=== PATIENT | male | born 1955 | race Caucasian/White ===

== ENCOUNTER 2017-05-13 09:29 | Inpatient (IN) | payer OTHER ==
[2017-05-13] MEDS ORDERED: ASPIRIN EC 325 MG TAB PO ONE (09:33)
[2017-05-13] MEDS ORDERED: DIAZEPAM 5 MG TAB PO ONE (09:33)
[2017-05-13] MEDS ORDERED: FAMOTIDINE 20 MG TAB PO ONE (09:33)
[2017-05-13] MEDS ORDERED: diphenhydrAMINE 25 MG CAP PO ONE (09:33)
[2017-05-13] MEDS ORDERED: NS 1,000 ML IV ONE (09:33)
--- NOTE | 2017-05-13 09:44 | CPEKG ---
Heart Rate: 71 RR Interval: 845 P-R Interval: 176 QRSD Interval: 82 QT Interval: 372 QTC Interval: 405 P [place]: 1 QRS [place]: 16 T Wave [place]: 47 EKG Severity - ABNORMAL ECG - EKG Impression: SINUS RHYTHM EKG Impression: PROBABLE INFERIOR INFARCT, OLD Electronically Signed By: Chava Manjarrez 16-May-2017 08:48:56
[2017-05-13 10:00] LABS: % IMMATURE GRANULYOCYTES 0.2 % (0.0-1.1); ABSOLUTE IMMATURE GRANULOCYTES 0.01 10^3/uL (0.00-0.10); ADD DIFF? NO; ADD MORPH? NO; ADD SCAN? NO; ATYPICAL LYMPHOCYTE FLAG 0 (0-99); FRAGMENT RBC FLAG 0 (0-99); HEMATOCRIT 43.7 % (40.0-51.0); HEMOGLOBIN 15.1 g/dL (13.7-17.5); LEFT SHIFT FLG 0 (0-99); LIPEMIA HEMOLYSIS FLAG 90 (0-99); MEAN CELL HEMOGLOBIN 29.7 pg (27.9-34.1); MEAN CELL HEMOGLOBIN CONCENTR. 34.6 g/dL (32.4-36.7); MEAN CELL VOLUME 85.9 fL (81.5-99.8); MEAN PLATELET VOLUME 9.8 fL (8.7-11.7); PLATELET CLUMPS FLAG 0 (0-99); PLATELET COUNT 284 10^3/uL (150-400); RED BLOOD CELL COUNT 5.09 10^6/uL (4.40-6.38); RED CELL DISTRIBUTION WIDTH 12.3 % (11.5-15.2)
[2017-05-13 10:08] LABS: ANION GAP 5 mEq/L (8-16); CALCIUM 10.1 mg/dL (8.5-10.4); CARBON DIOXIDE 29 mEq/l (22-31); CHLORIDE 101 mEq/L (97-110); CHOLESTEROL 161 mg/dL (140-220); CREATININE 0.9 mg/dL (0.7-1.3); GLOMERULAR FILTRATION RATE > 60; GLUCOSE 100 mg/dL (70-100); HIGH DENSITY LIPOPROTEIN 52 mg/dL (40-65); LDL/HDL RATIO 1.73 RATIO (1.00-3.64); LOW DENSITY LIPOPROTEIN 90 mg/dL (80-100); MAGNESIUM 1.8 mg/dL (1.6-2.3); NON-HIGH DENSITY LIPOPROTEIN 109 mg/dL (90-129); POTASSIUM 4.2 mEq/L (3.5-5.2); SODIUM 135 mEq/L (134-144); TRIGLYCERIDE 99 mg/dL (40-150); VERY LOW DENSITY LIPOPROTEINS 19 mg/dL (8-25)
[2017-05-13 10:10] LABS: INR 1.05 (0.83-1.16); PROTIME(PATIENT) 13.6 SEC (12.0-15.0)
[2017-05-13] MEDS ORDERED: oxyCODONE IR 5 MG TAB PO PRN ×2 (10:42→10:46)
--- NOTE | 2017-05-13 11:54 | PDPROPOC ---
Sedation Plan of Care Sedation Plan of Care: vital signs stable, mental status noted, patient educated of risks, benefits, alternatives, patient can tolerate sedation ASA Classification: ASA 3 Planned drugs: fentanyl, midazolam Mallampati Score: Class 3 Mallampati Reference Image: Patient passed 3-3-2 rule?: Yes
--- NOTE | 2017-05-13 11:54 | PDHPUP ---
History & Physical Update H&P update statement: This history and physical update is based on an assessment of the patient which was completed after admission or registration (within 24 hours), but prior to the surgery/procedure. H&P update: H&P reviewed & patient examined, no change in patient's condition since H&P completed
[2017-05-13] MEDS ORDERED: LIDOCAINE 1% 300 MG/30 ML SDV ONE (12:30)
[2017-05-13] MEDS ORDERED: fentaNYL 100 MCG/2 ML INJ ONE ×3 (12:30→13:26)
[2017-05-13] MEDS ORDERED: VERAPAMIL 5 MG/2 ML VIAL ONE (12:31)
[2017-05-13] MEDS ORDERED: HEPARIN 10,000 UNIT/10 ML MDV ONE (12:31)
[2017-05-13] MEDS ORDERED: MIDAZOLAM 2 MG/2 ML VIAL ONE ×2 (12:31→13:04)
[2017-05-13] MEDS ORDERED: IOPAMIDOL (ISOVUE-370) 150 ML BTL IV ONE (12:31)
--- NOTE | 2017-05-13 13:19 | PDDXCAT ---
Diagnostic Cath Note - . Date: 05/13/17 High Worker: Ashanti Indication: other (shortness of breath anginal equivalent (CCS Class III)with moderate risk stress test) - Procedure Access: left wrist Procedure: left heart catheterization - Materials Left Heart Cath size: 5F Left Heart Cath materials: standard multipack (JL4, JR4, pigtail) - Findings-Left Heart Catheterization LM: it is small near the ostium and approx 3.5mm in size. Bifurcates into an LAD and circumflex system. The circ vessel is small approx 2.5mm in size. At the level of the first obtuse marginal takeoff there is a complex atheroma distal to the first obtuse marginal the circ is totally occuluded but fills via left to left collateral. LAD: The LAD arises in its usual location and is a 3mm vessel. It has been previously sentsed proximally. The stent is widely patent without evidenc of resentsosis. Gives rise to 2 important diagonal branches. 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 The LAD thereafter is small , approx 1.5mm in size. There is ANDRÉS III flow. RCA: 4mm in size and is dominant giving rise to PDA and 3 posterolateral ventricular branches. It has a hinge point near the acute margin of the heart. In the DAWSON projection it appears to be eccentric at least a 60% if not 70% lesion. In the stented segment of the distal right coronary approx to the PDA at least a 50% in stent restenosis. EDP: 19mmHg. LVEF: EF is 60% with a mid-anterior wall hypokinesis. Wall motion: No significant MR. The visualized portion of the thoracic aorta appears to be aneurysmal. There are three sinuses of Valsalva. One of which appears to have a linear radiolucency, that is of unclear significance. In the mid-anterior wall there is mild hypokinesis. The overall EF is preserved. Complications: NONE. Estimated blood loss: <50ml Closure method: TR Band Assessment: Severe [place] vessel coronary disease with insegment restenosis of the distal portion of the RCA stent at the acute margin of the heart estimated to be 65 to 70% in the DAWSON projection. The distal RCA stent is also compromised and has at least 50-60% stenosis in its mid segment. The circumflex OM is occluded with left to left collateral. There is a dilated aorta likely aneurysmal. The architecture of one of the sinuses of valsalva is abnormal. Plan: The patient will need to have a CT angiogram with 3D reconstruction of the thoracic aorta and sinuses of Valsalva and possibly a NENA to better characterize the aortic valve architecture. If a surgery is not required to repair the thoracic aorta or the aortic valve, the patient should have intervention to repair the RCA stents and possibly the circumflex obtuse marginal.
[2017-05-13] MEDS ORDERED: HYDROCODONE/APAP 5/325 TAB PO PRN (14:30)
[2017-05-13] MEDS ORDERED: NITROGLYCERIN 0.4 MG BTL SL PRN (14:30)
[2017-05-13] MEDS ORDERED: ONDANSETRON 4 MG/2 ML VIAL IVP PRN (14:30)
[2017-05-13] MEDS ORDERED: ATROPINE SULFATE 1 MG/10 ML SYR IVP PRN (14:30)
[2017-05-13] MEDS ORDERED: IOPAMIDOL (ISOVUE 370) 100 ML BTL IV ONE (14:52)
[2017-05-13] MEDS ORDERED: ACET/CAFFEINE/BUTA FIORICET 1 EACH TAB PO PRN (16:14)
[2017-05-13] MEDS ORDERED: CLOPIDOGREL BISULFATE 75 MG TAB PO ONE (18:15)
[2017-05-13] MEDS: AMITRIPTYLINE HCL 10 MG TAB PO SCH (21:25)
[2017-05-13] MEDS: oxyCODONE IR 15 MG TAB PO PRN (21:25)
[2017-05-13] MEDS: FLUTICASONE NASAL 120 SPRAYS/16 GM MDI EACHNARE SCH (23:13)
[2017-05-14] MEDS ORDERED: FAMOTIDINE 20 MG TAB PO ONE (06:37)
[2017-05-14] MEDS ORDERED: diphenhydrAMINE 25 MG CAP PO ONE (06:37)
[2017-05-14] MEDS ORDERED: TEMAZEPAM 15 MG CAP PO PRN (06:37)
[2017-05-14] MEDS ORDERED: DIAZEPAM 5 MG TAB PO ONE (06:37)
[2017-05-14] MEDS ORDERED: CLOPIDOGREL BISULFATE 75 MG TAB ONE (06:41)
--- NOTE | 2017-05-14 06:42 | PDPROPOC ---
Sedation Plan of Care ASA Classification: ASA 2 Planned drugs: fentanyl, midazolam Mallampati Score: Class 2 Mallampati Reference Image: Patient passed 3-3-2 rule?: Yes
--- NOTE | 2017-05-14 06:42 | PDHPUP ---
History & Physical Update H&P update statement: This history and physical update is based on an assessment of the patient which was completed after admission or registration (within 24 hours), but prior to the surgery/procedure. H&P update: H&P reviewed & patient examined (No dissection on CTA, plan for RCA PCI this AM)
--- NOTE | 2017-05-14 06:46 | PDCARPN ---
Cardiology Progress Note Chief Complaint: Pt feels well overnight Assessment/Plan: Assessment: CAD Plan: PCI of RCA- I have explained to patient risks/possible complications of performing procedure including bleeding, infection, and possible and he would like to proceed. NPO. 05/14/17 06:44 Subjective: No current CP Reviewed/Discussed With: family (discussed with family/pt about risks/possible complications of procedure) Time Spent With Patient: 25 Objective: Vital Signs (8 Hrs) Temp Pulse Resp BP Pulse Ox 05/14/17 04:00 36.4 C 66 18 130/84 H 94 05/13/17 23:43 36.7 C 74 16 118/74 94 Intake/Output (24 Hrs) 05/13/17 05/14/17 05/15/17 05:59 05:59 05:59 Intake Total 600 Balance 600 Intake: Oral (ml) 600 Other: Weight 83.915 kg Number of Voids Toilet 2 Result Diagrams: 05/13/17 09:40 05/13/17 09:40 ICD10 Worksheet Patient Problems: Problems Problem Status Onset Angina of effort Acute - ICD10 Problem Qualifiers (1) Angina of effort
[2017-05-14] MEDS: CLOPIDOGREL BISULFATE 75 MG TAB PO SCH (06:59)
[2017-05-14] MEDS ORDERED: LIDOCAINE 1% 300 MG/30 ML SDV ONE (07:27)
[2017-05-14] MEDS ORDERED: IOPAMIDOL (ISOVUE-370) 150 ML BTL IV ONE (07:27)
[2017-05-14] MEDS ORDERED: fentaNYL 100 MCG/2 ML INJ ONE ×3 (07:30→09:46)
[2017-05-14] MEDS ORDERED: MIDAZOLAM 2 MG/2 ML VIAL ONE ×2 (07:30→07:34)
[2017-05-14] MEDS ORDERED: BIVALIRUDIN 250 MG/5 ML VIAL IV ONE (07:34)
--- NOTE | 2017-05-14 08:21 | PDCARPN ---
Cardiology Progress Note Assessment/Plan: Assessment: CAD Plan: PCI of RCA- I have explained to patient risks/possible complications of performing procedure including bleeding, infection, and possible and he would like to proceed. NPO. 05/14/17 06:44 Objective: Vital Signs (8 Hrs) Temp Pulse Resp BP Pulse Ox 05/14/17 04:00 36.4 C 66 18 130/84 H 94 Intake/Output (24 Hrs) 05/13/17 05/14/17 05/15/17 05:59 05:59 05:59 Intake Total 600 Balance 600 Intake: Oral (ml) 600 Other: Weight 83.915 kg Number of Voids Toilet 2 Result Diagrams: 05/13/17 09:40 05/13/17 09:40 - Physical Exam Constitutional: healthy appearing Eyes: PERRL Cardiovascular: no murmurs Peripheral Pulses: 2+: carotid (R), carotid (L), femoral (R), femoral (L), dorsalis-pedis (R), dorsalis-pedis (L) Respiratory: clear to auscultate bilat Gastrointestinal: normoactive bowel sounds Skin: warm Neurologic: AAOx3 Psychiatric: cooperative, interactive Lymph, Heme, Immunologic: no lymphadenopathy ICD10 Worksheet Patient Problems: Problems Problem Status Onset Angina of effort Acute - ICD10 Problem Qualifiers (1) Angina of effort
--- NOTE | 2017-05-14 08:41 | CPEKG ---
Heart Rate: 60 RR Interval: 1000 P-R Interval: 168 QRSD Interval: 88 QT Interval: 408 QTC Interval: 408 P [place]: 0 QRS [place]: 6 T Wave [place]: 40 EKG Severity - ABNORMAL ECG - EKG Impression: SINUS RHYTHM EKG Impression: PROBABLE INFERIOR INFARCT, OLD Electronically Signed By: Chava Manjarrez 16-May-2017 08:49:01
[2017-05-14] MEDS: oxyCODONE IR 15 MG TAB PO PRN ×4 (08:49→20:00)
[2017-05-14] MEDS ORDERED: fentaNYL 100 MCG/2 ML INJ IVP ONE (10:00)
[2017-05-14] MEDS: RAMIPRIL 2.5 MG CAP PO SCH (10:55)
[2017-05-14] MEDS: CHOLECALCIFEROL VIT D3 1,000 UNITS TAB PO SCH (10:56)
[2017-05-14] MEDS: CYANO/VITAMIN B12 1000 MCG TAB PO SCH (10:58)
[2017-05-14] MEDS: METOPROLOL TARTRATE 25 MG TAB PO SCH (10:58)
[2017-05-14] MEDS: ATORVASTATIN CALCIUM 40 MG TAB PO SCH (10:58)
[2017-05-14] MEDS: MULTIVITAMINS 1 EACH TAB PO SCH (10:58)
[2017-05-14] MEDS: FLUTICASONE NASAL 120 SPRAYS/16 GM MDI EACHNARE SCH (10:59)
[2017-05-14] MEDS: ASPIRIN EC 81 MG TAB PO SCH (10:59)
[2017-05-14] MEDS: CYCLOBENZAPRINE 10 MG TAB PO PRN ×3 (11:51→20:00)
--- NOTE | 2017-05-14 13:02 | CPIP ---
[f rep st] INVASIVE CARDIAC PROCEDURE DATE OF PROCEDURE: 05/14/2017 INDICATIONS FOR PROCEDURE: Angina. PROCEDURE: 1. Nonselective right coronary sheathogram. 2. Right coronary artery angiography. 3. Percutaneous coronary intervention of distal right coronary artery with 3.5 x [address] ent. 4. Percutaneous coronary intervention of proximal right coronary artery with 3.5 x 32 bare metal debi nt. 5. Right groin closure with 6-Iranian Angio-Seal. HISTORY: This is a 62-year-old male with history of coronary artery disease. The patient underwent o utpatient stress testing which showed significant ischemia. The patient underwent diagnostic cardiac catheterization by Dr. Burrell which showed high grade in-stent restenosis of prox and distal RCA. The patient also had what appeared to be a chronic total occlusion of the very tiny marginal artery. The LAD did not appear to have any significant disease. The patient was consented for PCI of the right c oronary artery this a.m. I explained the risks and positive complications of the procedure to the pat milly and his family and he was willing to proceed with the procedure. DESCRIPTION OF PROCEDURE: After informed consent was obtained, the patient was brought to the [facility] ca th lab where the right groin was prepped and draped in sterile fashion. The patient was administered of Plavix the night before the procedure and 75 mg of Plavix the day of the procedure. Ut ilizing local lidocaine, a short 6-Iranian sheath in the right common femoral artery verified intraope ratively. Through the 6-Iranian sheath, the JR4, 6-Iranian guide catheter was advanced to the right cor onary artery. The 6-Iranian guide catheter had side holes. The right coronary artery revealed, once ag ain, normal ostial RCA. The prox RCA had a stent extending to the mid RCA. There was moderate in-sten t restenosis of the proximal aspect of this stent. At the distal edge of the stent there was high gra de stenosis. This was followed by an area of normal vessel and the distal RCA had a focal area of 80% in-stent restenosis where an additional distal RCA stent was placed. The RPD and RPLS appeared to be healthy and free of disease. A [place] wire was placed down to the RPLS. Pre-dilatation commenced w ith a 3.0 x 12 compliant balloon across the distal RCA stent initially at 12 atmospheres. After defla tion, this was brought back to the proximal edge of the proximal RCA stent and then inflated to 12 at mospheres and deflated, and then again a third inflation across the mid portion of the proximal stent at 12 atmospheres. After this was performed, angiography was obtained which showed improved patency of these areas; however, there was still significant ISR noted. We decided to proceed with stenting. Bare metal stenting was chosen for this purpose secondary to the fact that the patient was scheduled for back surgery within the month and his pain has been intractable hence, we decided that we would t ry to minimize his anticoagulation use. A 3.5 x 12 mm Rebel bare metal stent was utilized and deploye d successfully at 16 atmospheres across the distal in-stent restenosis area. After this was deployed, angiography was obtained which showed excellent patency of this area with no evidence of narrowing. We then turned out attention to the proximal distal edge stenosis and moderate mid ISR of the proxima l RCA stent. A 3.5 x 32 Rebel stent was chosen for this purpose and deployed successfully at 16 atmos pheres. After deployment, angiography was obtained and showed still some mild waste of the proximal a spect of this stent. We decided to post-dilate this with a 3.75 x 20 mm non-compliant balloon at 16 a tmospheres. After this was performed, angiography was obtained which showed excellent patency of the stented areas with no evidence of dissection or perforation. The wire was removed. The guide catheter was removed over the 0.035 wire. The right groin was closed with 6-Iranian Angio-Seal. The patient to lerated the procedure well with no complications. IMPRESSION: Successful percutaneous coronary intervention of the high grade in-stent restenosis of p roximal and distal right coronary artery with 2 bare metal stents. PLAN: The patient will have 3 hours of bed rest, continue to be observed overnight. If clinically st able, will be discharged within 24 hours. 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 Again, this vessel also has excellent collaterals from a [id number] system. We will continue the patient on aspirin a nd Plavix for at least 1 month and will hold the Plavix for approximately 7 days and the aspirin prio r to his spinal surgery. /[id number]/MODL
--- NOTE | 2017-05-14 15:52 | ASMTCASEMG ---
Living Arrangements What is your living Answers: With Spouse arrangement? Who do you live with? Type Of Residence What kind of residence do Answers: House you live in? Discharge Plan Comments Coordination Status Comments Notes: Chart reviewed and spoke w/ CINDY Ni. Pt is a 62 y/o man admitted for post cath. Pt had 2 stents placed today. Pt will most likely discharge w/ supportive when he is medically stable. No therapies ordered at this time. CM available for changes. Date Signed: 05/14/2017 03:52 PM Electronically Signed By:REJI Encarnacion
[2017-05-14] MEDS: AMITRIPTYLINE HCL 10 MG TAB PO SCH (20:00)
[2017-05-15] MEDS: oxyCODONE IR 15 MG TAB PO PRN ×2 (02:35→08:10)
[2017-05-15] MEDS: CYCLOBENZAPRINE 10 MG TAB PO PRN ×2 (02:35→08:10)
[2017-05-15 04:29] LABS: % IMMATURE GRANULYOCYTES 0.4 % (0.0-1.1); ABSOLUTE IMMATURE GRANULOCYTES 0.03 10^3/uL (0.00-0.10); ADD DIFF? NO; ADD MORPH? NO; ADD SCAN? NO; ATYPICAL LYMPHOCYTE FLAG 0 (0-99); FRAGMENT RBC FLAG 0 (0-99); HEMATOCRIT 37.4 % (40.0-51.0); HEMOGLOBIN 13.2 g/dL (13.7-17.5); LEFT SHIFT FLG 0 (0-99); LIPEMIA HEMOLYSIS FLAG 90 (0-99); MEAN CELL HEMOGLOBIN CONCENTR. 35.3 g/dL (32.4-36.7); MEAN PLATELET VOLUME 9.9 fL (8.7-11.7); PLATELET CLUMPS FLAG 0 (0-99); PLATELET COUNT 237 10^3/uL (150-400); RED CELL DISTRIBUTION WIDTH 12.3 % (11.5-15.2)
[2017-05-15 04:40] LABS: ANION GAP 7 mEq/L (8-16); CALCIUM 9.5 mg/dL (8.5-10.4); CARBON DIOXIDE 27 mEq/l (22-31); CHLORIDE 103 mEq/L (97-110); CREATININE 0.8 mg/dL (0.7-1.3); GLOMERULAR FILTRATION RATE > 60; GLUCOSE 98 mg/dL (70-100); POTASSIUM 4.3 mEq/L (3.5-5.2); SODIUM 137 mEq/L (134-144)
[2017-05-15 07:39] VITALS: BP 144/95; PULSE 75; RESP 22; TEMP 97.9; O2SAT 97
[2017-05-15] MEDS: MULTIVITAMINS 1 EACH TAB PO SCH (09:22)
[2017-05-15] MEDS: CHOLECALCIFEROL VIT D3 1,000 UNITS TAB PO SCH (09:22)
[2017-05-15] MEDS: CYANO/VITAMIN B12 1000 MCG TAB PO SCH (09:22)
[2017-05-15] MEDS: METOPROLOL TARTRATE 25 MG TAB PO SCH (09:23)
[2017-05-15] MEDS: ASPIRIN EC 81 MG TAB PO SCH (09:23)
[2017-05-15] MEDS: CLOPIDOGREL BISULFATE 75 MG TAB PO SCH (09:23)
[2017-05-15] MEDS: ATORVASTATIN CALCIUM 40 MG TAB PO SCH (09:23)
[2017-05-15] MEDS: RAMIPRIL 2.5 MG CAP PO SCH (09:23)
[2017-05-15] MEDS: FLUTICASONE NASAL 120 SPRAYS/16 GM MDI EACHNARE SCH (09:27)
[2017-05-15] MEDS ORDERED: FLU VACC QS 2017-18 (3YR+)/PF 0.5 ML SYR (FLUARIX QUAD) IM ONE (09:47)
--- NOTE | 2017-05-15 10:55 | GDS ---
[f rep st] DISCHARGE SUMMARY DISCHARGE DIAGNOSES: 1. Increased dyspnea on exertion with associated fatigue, and abnormal nuclear stress test with mode rate reversible perfusion defect in the inferior wall. 2. History of known coronary artery disease, status post myocardial infarction after a cervical spin e surgery; status post percutaneous transluminal coronary angioplasty and stenting to right coronary artery x2. 3. Obstructive disease found in previous stents, status post repeat stenting yesterday with Dr. Valerie ovalles with 2 bare metal stents to proximal right coronary artery and distal right coronary artery. 4. Dyslipidemia. 5. Hypertension. 6. Osteoarthritis and degenerative disk disease in back with need for lumbar surgery in the near fut ure. 7. Chronic pain due to above. BRIEF HISTORY: Please see dictated H and P by Dr. Curtis for complete details. In brief, the patient is a 62-year-old male with a history of coronary artery disease with inferior VA treated with PTCA an d stenting to his RCA after a cervical spine surgery. He is due for a lumbar surgery, as well. He h ad a stress test recently that showed a moderate size inferior wall reversible defect. He had also b een noting some exertional fatigue and dyspnea. He proceeded to left heart catheterization with Dr. Burrell, and was noted to have dilated sinuses of Valsalva. He also had occlusive disease found in th e circumflex and RCA. HOSPITAL COURSE BY PROBLEM: 1. Dilated ascending aorta: He had a CTA of chest which showed [id number] dilation of the asc ending aorta, 4.1 x 4.2 cm transversely. There was a normal appearance to the coronary sinuses witho ut evidence of aneurysm or dissection. 2. Obstructive disease in the RCA and chronic total occlusion of the circumflex: The patient procee ded to repeat stenting in the distal RCA with a 3.5 x 12 mm bare metal stent and a 3.5 x 32 bare meta l stent in the proximal RCA. He will be started on dual antiplatelet therapy with Plavix and aspirin . 3. Dyslipidemia: Lipids were checked in this hospitalization. He is on atorvastatin 40 mg daily. His LDL is 90. Potentially, he should have an increase in his atorvastatin dose. He may discuss thi s with Dr. Curtis in followup. His total cholesterol is 161, triglycerides 99, and HDL of 52. 4. Hypertension: Blood pressure has been mostly controlled, though he has had some readings in the 140s over 90s in this admission. He is treated with ramipril and metoprolol daily. He is advised to bring his blood pressure monitor to his next office visit for calibration. 5. CAD: He is a candidate for cardiac rehab, and this may be discussed in the outpatient setting. PHYSICAL EXAMINATION: VITAL SIGNS: On day of discharge, blood pressure 144/95, heart rate 75, respi rations 22, O2 saturation 97% on room air, with temp of 97.9 degrees Fahrenheit. GENERAL: A very ple asant male in no apparent distress. EYES: PERRL. HEART: Regular rate and rhythm. LUNGS: Clear. EXTREMITIES: Left wrist site without bruit or ecchymosis, and radial pulse is strong, 2+. Right gr oin site without ecchymosis or hematoma. There is no bruit auscultated. Femoral pulses intact. PT pulse is intact. LABORATORY DATA: BMP with sodium 137, potassium 4.3, chloride 103, CO2 27, BUN 11, creatinine 0.8, g lucose of 98. CBC with WBC 8.34, hemoglobin 13.2, hematocrit 37.4, platelet count of 237 telemetry r eviewed shows sinus rhythm. 12-lead ECG personally interpreted from 05/14/2017 shows sinus rhythm at 60 beats per minute. RESULTS PENDING: None. DIET: Cardiac diet. ACTIVITY: Groin and wrist precautions were reviewed. He may enroll in cardiac rehab in the future. DISCHARGE MEDICATIONS: Please see med reconciliation. He is being discharged on his home medication s, which include oxycodone 15 mg p.o. q.4 hours p.r.n., ramipril 2.5 mg p.o. daily, multivitamin, met oprolol 12.5 p.o. daily, glucosamine, vitamin B12, vitamin D3, atorvastatin 80 mg p.o. daily, aspirin 81 mg p.o. daily, Elavil 20 mg p.o. h.s., Fioricet, Flexeril, and Plavix 75 mg p.o. daily. Please n ote that the Plavix is a new prescription. FOLLOWUP INSTRUCTIONS: 1. Groin and wrist precautions. 2. Cardiac rehab when deemed appropriate. 3. Followup with Dr. Curtis as scheduled. /[id number]/MODL
--- NOTE | 2017-05-16 13:41 | ASDISCHSUM ---
Discharge Information Plan Status:Home with No Needs Medically Cleared to Leave:05/15/2017 Discharge Date:05/15/2017 10:42 AM CM D/C Disposition: ADT D/C Disposition:Home, Routine, Self-Care Projected Discharge Date:05/15/2017 12:00 AM Transportation at D/C: Discharge Delay Reason: Follow-Up Date:05/15/2017 12:00 AM Discharge Slot: Final Diagnosis: Placement Information Patient Contact Information Contact Name:JOSÉ LUIS Relationship: Address:[address] Work Phone: City:[place] Alternate Phone: [facility]/Zip Code:[place] [address] Email: Financial Information Financial Class:HMO and PPO Plans Primary Plan Desc:[facility] Primary Plan Number:[id number] Secondary Plan Desc: Secondary Plan Number: Assessment Information [facility] Initial CM Assessment Living Arrangements What is your living Answers: With Spouse arrangement? Who do you live with? Type Of Residence What kind of residence do Answers: House you live in? Discharge Plan Comments Coordination Status Comments Notes: Chart reviewed and spoke w/ CINDY Ni. Pt is a 62 y/o man admitted for post cath. Pt had 2 stents placed today. Pt will most likely discharge w/ supportive when he is medically stable. No therapies ordered at this time. CM available for changes. Date Signed: 05/14/2017 03:52 PM Electronically Signed By:REJI Encarnacion Intervention Information
== END 2017-05-15 10:42 | disposition home or self-care (01) | DRG 249 ==
LOC: FCATH 09:29 → F2W 14:55 → OBSVTOIN 05-14 08:26
PROVIDERS: ADMIT Internal Medicine Cardiovascular Disease; ATTEND Internal Medicine Cardiovascular Disease
PROC: 4A023N7 Measurement of Cardiac Sampling and Pressure, Left Heart, Percutaneous Approach (ICD-10-PCS; 2017-05-13)
PROC: B2111ZZ Fluoroscopy of Multiple Coronary Arteries using Low Osmolar Contrast (ICD-10-PCS; principal; 2017-05-14)
PROC: 02713EZ Dilation of Coronary Artery, Two Arteries with Two Intraluminal Devices, Percutaneous Approach (ICD-10-PCS; principal; 2017-05-14)
DX: I25.119 Atherosclerotic heart disease of native coronary artery with unspecified angina pectoris (principal); T82.855A Stenosis of coronary artery stent, initial encounter; G89.29 Other chronic pain; E78.5 Hyperlipidemia, unspecified; I10 Essential (primary) hypertension; M51.26 Other intervertebral disc displacement, lumbar region; I25.2 Old myocardial infarction; M51.36 Other intervertebral disc degeneration, lumbar region; Z23 Encounter for immunization
CPT/HCPCS: C1725; C1760; C1769; C1876; C1887; G0008; J0583; J1644; J2250; J3010; Q9967